=== PATIENT | female | born 1955 | race Caucasian/White ===

== ENCOUNTER 2018-09-21 17:40 | Emergency (ER) | payer OTHER ==
[2018-09-21 17:48] VITALS: BP 125/72; PULSE 68; TEMP 97.7; BMI 21.7
[2018-09-21] MEDS ORDERED: IBUPROFEN 600 MG TABLET (FP) PO ONE (17:52)
--- NOTE | 2018-09-21 17:56 | PDOC ---
History of Present Illness - General History Source: Patient Exam Limitations: No Limitations - History of Present Illness Initial Comments: 09/21/18 18:09 The patient is a 62-year-old female with a past medical history significant for osteoporosis (current not on medication) presents to the emergency department with an ankle injury. The patient reports around 2:30 pm today, she was walking to the phone when she twisted her left ankle outwards, denies falling. The patient states she was able to ambulate on the ankle with discomfort; she went to the stairs and sat down. The patient reports she put ice on the ankle and wrapped it up tightly, without relief. Denies taking any medication. The patient indicates the pain had been progressively worsening. The patient reports she started a new job yesterday, where the facility was freezing, which made her knee down numb. Denies numbness, tingling or loss of sensation. Allergies: Abx for UTI, (unknown) PCP: Dr. Andre <Tamika Santamaria - Last Filed: 09/21/18 18:12> <Hector Corona - Last Filed: 09/21/18 18:20> - General Chief Complaint: Injury Stated Complaint: LEFT ANKLE, LEFT FOOT PAIN Time Seen by Provider: 09/21/18 17:42 Past History <Tamika Santamaria - Last Filed: 09/21/18 18:12> - Past Medical History COPD: No Psychiatric Problems: Yes (paranoia) - Surgical History Abdominal Surgery: Yes (for intestinal blockage) - Suicide/Smoking/Psychosocial Hx Smoking History: Never smoked Have you smoked in the past 12 months: No Information on smoking cessation initiated: No Hx Alcohol Use: No Drug/Substance Use Hx: No <Hector Corona - Last Filed: 09/21/18 18:20> - Past Medical History Allergies/Adverse Reactions: Allergies Allergy/AdvReac Type Severity Reaction Status Date / Time unknown antibiotic for uti Allergy Uncoded 09/21/18 17:44 Home Medications: Ambulatory Orders Risperidone [Risperdal] 1 mg PO HS 02/03/15 Review of Systems - Review of Systems Musculoskeletal: Yes: Joint Pain Neurological: No: Paresthesia, Tingling, Weakness <Hector Corona - Last Filed: 09/21/18 18:20> *Physical Exam - Vital Signs Last Vital Signs Temp Pulse Resp BP Pulse Ox 97.7 F 68 18 125/72 100 09/21/18 17:40 09/21/18 17:40 09/21/18 17:40 09/21/18 17:40 09/21/18 17:40 - Physical Exam Comments: 09/21/18 18:11 GENERAL: The patient is awake, alert, and fully oriented, in no acute distress. HEAD:Normal with no signs of trauma. EYES: Pupils equal, round and reactive to light, extraocular movements intact, sclera anicteric, conjunctiva clear. EXTREMITIES: +Discomfort to the anterior medial ankle joint, no focal tenderness to the knees, malleolus, or the bones of the foot. Neurovascularly intact. Full range of motion of the knees, ankles and toes. No deformities. No bruising. NEUROLOGICAL: Normal speech, normal gait. PSYCH: Normal mood, normal affect. SKIN: Warm, Dry, normal turgor, no rashes or lesions noted. <Tamika Santamaria - Last Filed: 09/21/18 18:12> - Vital Signs Last Vital Signs Temp Pulse Resp BP Pulse Ox 97.7 F 68 18 125/72 100 09/21/18 17:40 09/21/18 17:40 09/21/18 17:40 09/21/18 17:40 09/21/18 17:40 <Hector Corona - Last Filed: 09/21/18 18:20> ED Treatment Course - RADIOLOGY Radiology Studies Ordered: Category Date Time Status ANKLE & FOOT-LEFT* [RAD] Stat Radiology 09/21/18 17:52 Ordered <Hector Corona - Last Filed: 09/21/18 18:20> Medical Decision Making - Medical Decision Making 09/21/18 17:54 62-year-old female presents with left ankle eversion injury about 3 hours ago, delayed onset of discomfort to the anterior ankle joint space without motor or sensory deficit. No other injuries. Did not take anything for pain, applied ice. Presents for evaluation. Vital signs normal. Left lower extremity without deformity, slight discomfort to the anterior medial left ankle joint space without bony tenderness to the tibia/fibula/ malleoli/. Neurovascular intact. 62-year-old female with left ankle sprain, rule out fracture. Motrin for pain Already applied ice Left ankle/foot x-ray Reassurance and disposition accordingly 09/21/18 18:18 On my preliminary review, there is no acute fracture or dislocation of the left ankle or foot. Positive osteoporosis. Air cast applied, understands return criteria. <Hector Corona - Last Filed: 09/21/18 18:20> *DC/Admit/Observation/Transfer - Attestations Scribe Attestion: 09/21/18 18:09 Documentation prepared by Tamika Santamaria, acting as chief medical officer for Hector Corona MD. <Tamika Santamaria - Last Filed: 09/21/18 18:12> <Hector Corona - Last Filed: 09/21/18 18:20> Diagnosis at time of Disposition: Left ankle sprain Qualifiers: Encounter type: initial encounter Involved ligament of ankle: unspecified ligament Qualified Code(s): S93.402A - Sprain of unspecified ligament of left ankle, initial encounter - Discharge Dispostion Disposition: HOME Condition at time of disposition: Stable - Referrals Referrals: Pacheco Andre MD [Primary Care Provider] - Paul Martins MD [Staff Physician] - - Patient Instructions Printed Discharge Instructions: DI for Ankle Sprain Additional Instructions: Activity as tolerated. Stay hydrated. AirCast as provided as needed for support. Tylenol 1000 mg every 8 hours and/or ibuprofen 600 mg every 8 hours as needed for pain. Ice and elevate the affected areas for 20 minutes every 3-4 hours to reduce swelling. Continue your medications as previously prescribed by your physician. You should follow up with an orthopedic as needed regarding today's emergency department visit. Return to the emergency department for any new or concerning symptoms, particularly intolerable pain, severe swelling or discoloration, numbness. - Post Discharge Activity
== END 2018-09-21 18:05 | disposition home or self-care (01) ==
LOC: FER 17:40
PROC: 2W3RX1Z Immobilization of Left Lower Leg using Splint (ICD-10-PCS; principal; 2018-09-21)
DX: S93.402A Sprain of unspecified ligament of left ankle, initial encounter (principal); X58.XXXA Exposure to other specified factors, initial encounter; Y93.89 Activity, other specified; Y92.89 Other specified places as the place of occurrence of the external cause; M81.0 Age-related osteoporosis without current pathological fracture; F60.0 Paranoid personality disorder
CPT/HCPCS: 73610-TC-LT-FY; 73630-TC-LT; 99283-25